=== PATIENT | male | born 1960 | race Caucasian/White ===

== ENCOUNTER 2018-10-23 19:27 | Inpatient (IN) | payer OTHER ==
[2018-10-23] MEDS: CEFTRIAXONE 2 GM/50 ML (PMX) 50 ML IVPB (22:56)
[2018-10-23] MEDS ORDERED: NACL 0.9% 3 ML SYG IV (23:00)
[2018-10-23] MEDS ORDERED: BISACODYL (EC) 5 MG TAB PO (23:00)
[2018-10-23] MEDS ORDERED: ONDANSETRON 4 MG TAB PO (23:00)
[2018-10-23] MEDS ORDERED: ACETAMINOPHEN 325 MG TAB PO (23:00)
[2018-10-23] MEDS ORDERED: DOCUSATE SODIUM 100 MG CAP PO (23:00)
[2018-10-23] MEDS: CEFTRIAXONE 2 GM INJ IM (23:09)
[2018-10-24] MEDS: HYDROmorphONE 1 MG/ML SYG IM ×6 (04:00→19:00)
[2018-10-24] MEDS: VANCOMYCIN 1 GM (PMX) 250 ML IVPB (04:49)
[2018-10-24] MEDS: PIPER-TAZO 3.375 GM IV (PMX) 100 ML IVPB (04:49)
[2018-10-24] MEDS: HEPARIN 5,000 UNIT/1 ML VIAL SC (04:50)
[2018-10-24] MEDS: HYDROmorphONE 2 MG/ML SYG IM (04:54)
[2018-10-24 06:15] LABS: ADD MAN DIFF? NO
[2018-10-24 06:19] LABS: BASOPHIL # 0.1 10^3/ul (0.0-0.1); BASOPHILS % 0.8 % (0.0-2.0); EOSINOPHILS # 0.1 10^3/ul (0.0-0.5); EOSINOPHILS % 1.6 % (0.0-7.0); HEMATOCRIT 37.4 % (42.0-52.0); HEMOGLOBIN 11.2 g/dl (14.0-18.0); LYMPHOCYTES # 1.4 10^3/ul (0.8-2.9); MEAN CORPUSCULAR HEMOGLOBIN 24.6 pg (29.0-33.0); MEAN CORPUSCULAR HGB CONC 29.9 g/dl (32.0-37.0); MEAN PLATELET VOLUME 9.5 fl (7.4-10.4); MONOCYTE # 0.5 10^3/ul (0.3-0.9); MONOCYTES % 7.4 % (0.0-11.0); NEUTROPHIL # 4.1 10^3/ul (1.6-7.5); NEUTROPHILS % 66.7 % (39.0-77.0); PLATELET COUNT 309 10^3/UL (140-415); RED BLOOD COUNT 4.56 10^6/ul (4.70-6.10); RED CELL DISTRIBUTION WIDTH 15.2 % (11.5-14.5)
[2018-10-24 06:19] LABS: WHITE BLOOD COUNT 6.2 10^3/ul (4.8-10.8)
[2018-10-24] MEDS ORDERED: PENDING SANTYL ORDER FOR WOUND CARE XX (06:30)
[2018-10-24 06:42] LABS: INR 1.03; PROTIME 13.6 Sec (11.9-14.9); PT RATIO 1.1
[2018-10-24 06:43] LABS: PARTIAL THROMBOPLASTIN TIME 23.5 Sec (23.0-35.0)
[2018-10-24 06:44] LABS: ANION GAP 10 (5-13)
[2018-10-24 06:45] LABS: ALANINE AMINOTRANSFERASE 19 IU/L (13-69); ALBUMIN 3.6 g/dl (3.3-4.9); ALBUMIN/GLOBULIN RATIO 0.75; ALKALINE PHOSPHATASE 147 IU/L (42-121); ASPARTATE AMINO TRANSFERASE 29 IU/L (15-46); BILIRUBIN,INDIRECT 0.4 mg/dl (0-1.1); BILIRUBIN,TOTAL 0.4 mg/dl (0.2-1.3); BLOOD UREA NITROGEN 16 mg/dl (7-20); CALCIUM 8.7 mg/dl (8.4-10.2); CARBON DIOXIDE 28 mmol/L (21-31); CHLORIDE 102 mmol/L (97-110); CREATININE 1.36 mg/dl (0.61-1.24); Estimated GFR 54 mL/min (>60); GLUCOSE 153 mg/dl (70-220); LIPASE 46 U/L (23-300); POTASSIUM 3.9 mmol/L (3.5-5.1); SODIUM 140 mmol/L (135-144); TOTAL PROTEIN 8.4 g/dl (6.1-8.1)
[2018-10-24 07:10] LABS: C-REACTIVE PROTEIN 4.9 mg/dl (0.0-0.9)
[2018-10-24 07:23] LABS: HEMOGLOBIN A1C 6.1 % (0-5.9)
[2018-10-24 07:44] LABS: C-REACTIVE PROTEIN 4.9 mg/dl (0.0-0.9)
[2018-10-24 07:44] LABS: MAGNESIUM 2.1 mg/dl (1.7-2.5)
[2018-10-24 10:06] LABS: ERYTHROCYTE SEDIMENTATION RATE 32 mm/Hr (0-20)
[2018-10-24 15:21] LABS: HEPATITIS B SURFACE ANTIGEN NEGATIVE (NEGATIVE)
[2018-10-24 15:38] LABS: HEPATITIS C VIRAL ANTIBODY NEGATIVE (NEGATIVE)
[2018-10-24] MEDS: ITRACONAZOLE 100 MG CAP PO (16:38)
[2018-10-24] MEDS ORDERED: HYDROmorphONE 2 MG TAB PO (20:30)
[2018-10-24] MEDS: PENTOXIFYLLINE (SR) 400 MG TAB PO (20:54)
[2018-10-24] MEDS: CEFTRIAXONE 2 GM INJ IM (22:06)
[2018-10-25] MEDS: SODIUM HYPOCHLORITE (1/40) 1 APPLIC BTL IRR ×3 (01:05→21:52)
[2018-10-25] MEDS: ITRACONAZOLE 100 MG CAP PO ×3 (01:06→21:51)
[2018-10-25] MEDS: HYDROmorphONE 2 MG TAB PO ×5 (01:07→23:08)
[2018-10-25 06:30] LABS: ADD MAN DIFF? NO
[2018-10-25 06:41] LABS: BASOPHILS % 0.4 % (0.0-2.0); EOSINOPHILS # 0.1 10^3/ul (0.0-0.5); EOSINOPHILS % 1.6 % (0.0-7.0); HEMATOCRIT 37.1 % (42.0-52.0); HEMOGLOBIN 11.1 g/dl (14.0-18.0); LYMPHOCYTES # 1.3 10^3/ul (0.8-2.9); LYMPHOCYTES % 18.6 % (15.0-51.0); MEAN CORPUSCULAR HEMOGLOBIN 24.4 pg (29.0-33.0); MEAN CORPUSCULAR HGB CONC 29.9 g/dl (32.0-37.0); MEAN CORPUSCULAR VOLUME 81.7 fl (82.0-101.0); MEAN PLATELET VOLUME 9.9 fl (7.4-10.4); MONOCYTE # 0.4 10^3/ul (0.3-0.9); MONOCYTES % 6.2 % (0.0-11.0); NEUTROPHIL # 4.9 10^3/ul (1.6-7.5); NEUTROPHILS % 72.8 % (39.0-77.0); PLATELET COUNT 276 10^3/UL (140-415); RED BLOOD COUNT 4.54 10^6/ul (4.70-6.10); RED CELL DISTRIBUTION WIDTH 15.2 % (11.5-14.5)
[2018-10-25 06:41] LABS: WHITE BLOOD COUNT 6.7 10^3/ul (4.8-10.8)
[2018-10-25 07:38] LABS: ALANINE AMINOTRANSFERASE 17 IU/L (13-69); ALBUMIN 3.3 g/dl (3.3-4.9); ALBUMIN/GLOBULIN RATIO 0.71; ALKALINE PHOSPHATASE 133 IU/L (42-121); ANION GAP 9 (5-13); ASPARTATE AMINO TRANSFERASE 26 IU/L (15-46); BILIRUBIN,INDIRECT 0.2 mg/dl (0-1.1); BILIRUBIN,TOTAL 0.2 mg/dl (0.2-1.3); BLOOD UREA NITROGEN 20 mg/dl (7-20); CALCIUM 8.8 mg/dl (8.4-10.2); CARBON DIOXIDE 28 mmol/L (21-31); CHLORIDE 103 mmol/L (97-110); Estimated GFR > 60 mL/min (>60); GLUCOSE 122 mg/dl (70-220); POTASSIUM 4.4 mmol/L (3.5-5.1); SODIUM 140 mmol/L (135-144); TOTAL PROTEIN 7.9 g/dl (6.1-8.1)
[2018-10-25] MEDS: PENTOXIFYLLINE (SR) 400 MG TAB PO ×3 (09:37→21:52)
[2018-10-25] MEDS ORDERED: VANCOMYCIN IV PER PHARMACY XX (15:30)
[2018-10-25] MEDS: VANCOMYCIN HCL 2 GM in SOD CHLORIDE 0.9% 500 ML IVPB (18:22)
[2018-10-25] MEDS: PIPER-TAZO 3.375 GM IV (PMX) 100 ML IVPB (18:22)
[2018-10-25] MEDS: morphine 2 MG INJ IV (21:50)
[2018-10-25] MEDS: LOSARTAN 25 MG TAB PO (21:51)
[2018-10-25] MEDS: ATORVASTATIN 10 MG TAB PO (21:51)
[2018-10-25] MEDS: HEPARIN 5,000 UNIT/1 ML VIAL SC (21:53)
[2018-10-26] MEDS: PIPER-TAZO 3.375 GM IV (PMX) 100 ML IVPB ×4 (00:39→17:33)
[2018-10-26 05:55] LABS: ADD MAN DIFF? NO
[2018-10-26] MEDS: VANCOMYCIN HCL 1.75 GM in SOD CHLORIDE 0.9% 500 ML IVPB ×2 (05:55→18:42)
[2018-10-26 05:59] LABS: BASOPHIL # 0.1 10^3/ul (0.0-0.1); BASOPHILS % 0.7 % (0.0-2.0); EOSINOPHILS # 0.1 10^3/ul (0.0-0.5); EOSINOPHILS % 1.8 % (0.0-7.0); HEMATOCRIT 34.1 % (42.0-52.0); HEMOGLOBIN 10.2 g/dl (14.0-18.0); LYMPHOCYTES % 14.9 % (15.0-51.0); MEAN CORPUSCULAR HEMOGLOBIN 24.6 pg (29.0-33.0); MEAN CORPUSCULAR HGB CONC 29.9 g/dl (32.0-37.0); MEAN CORPUSCULAR VOLUME 82.4 fl (82.0-101.0); MEAN PLATELET VOLUME 9.9 fl (7.4-10.4); MONOCYTE # 0.4 10^3/ul (0.3-0.9); MONOCYTES % 5.2 % (0.0-11.0); NEUTROPHIL # 5.2 10^3/ul (1.6-7.5); NEUTROPHILS % 77.1 % (39.0-77.0); PLATELET COUNT 260 10^3/UL (140-415); RED BLOOD COUNT 4.14 10^6/ul (4.70-6.10); RED CELL DISTRIBUTION WIDTH 15.5 % (11.5-14.5)
[2018-10-26 05:59] LABS: WHITE BLOOD COUNT 6.7 10^3/ul (4.8-10.8)
[2018-10-26 06:15] LABS: ALANINE AMINOTRANSFERASE 28 IU/L (13-69); ALBUMIN/GLOBULIN RATIO 0.71; ALKALINE PHOSPHATASE 132 IU/L (42-121); ANION GAP 8 (5-13); ASPARTATE AMINO TRANSFERASE 21 IU/L (15-46); BILIRUBIN,INDIRECT 0.1 mg/dl (0-1.1); BILIRUBIN,TOTAL 0.1 mg/dl (0.2-1.3); BLOOD UREA NITROGEN 20 mg/dl (7-20); CALCIUM 8.3 mg/dl (8.4-10.2); CARBON DIOXIDE 29 mmol/L (21-31); CHLORIDE 104 mmol/L (97-110); CREATININE 1.37 mg/dl (0.61-1.24); Estimated GFR 53 mL/min (>60); GLUCOSE 134 mg/dl (70-220); POTASSIUM 3.9 mmol/L (3.5-5.1); SODIUM 141 mmol/L (135-144); TOTAL PROTEIN 7.2 g/dl (6.1-8.1)
[2018-10-26] MEDS: SODIUM HYPOCHLORITE (1/40) 1 APPLIC BTL IRR ×3 (09:00→21:06)
[2018-10-26] MEDS: LOSARTAN 25 MG TAB PO ×2 (09:00→21:00)
[2018-10-26] MEDS: ARIPIPRAZOLE 10 MG TAB PO (09:12)
[2018-10-26] MEDS: ITRACONAZOLE 100 MG CAP PO ×2 (09:14→21:01)
[2018-10-26] MEDS: PENTOXIFYLLINE (SR) 400 MG TAB PO ×3 (09:17→21:01)
[2018-10-26] MEDS: HEPARIN 5,000 UNIT/1 ML VIAL SC ×2 (09:17→21:02)
[2018-10-26] MEDS: HYDROmorphONE 2 MG TAB PO ×4 (09:19→22:56)
[2018-10-26 15:32] LABS: IRON 27 ug/dl (35-150)
[2018-10-26 15:41] LABS: % IRON SATURATION 10 % SAT (22-52); TOTAL IRON BINDING CAPACITY 270 ug/dl (241-421)
[2018-10-26] MEDS: ATORVASTATIN 10 MG TAB PO (21:01)
[2018-10-27] MEDS: PIPER-TAZO 3.375 GM IV (PMX) 100 ML IVPB ×3 (00:03→12:18)
[2018-10-27] MEDS: morphine 2 MG INJ IV ×3 (00:08→22:53)
[2018-10-27] MEDS: HYDROmorphONE 2 MG TAB PO ×4 (04:36→21:05)
[2018-10-27 05:36] LABS: ADD MAN DIFF? NO
[2018-10-27 05:41] LABS: BASOPHILS % 0.6 % (0.0-2.0); EOSINOPHILS # 0.2 10^3/ul (0.0-0.5); EOSINOPHILS % 2.2 % (0.0-7.0); HEMATOCRIT 36.4 % (42.0-52.0); HEMOGLOBIN 11.1 g/dl (14.0-18.0); LYMPHOCYTES # 1.3 10^3/ul (0.8-2.9); LYMPHOCYTES % 18.5 % (15.0-51.0); MEAN CORPUSCULAR HEMOGLOBIN 24.6 pg (29.0-33.0); MEAN CORPUSCULAR HGB CONC 30.5 g/dl (32.0-37.0); MEAN CORPUSCULAR VOLUME 80.5 fl (82.0-101.0); MEAN PLATELET VOLUME 9.9 fl (7.4-10.4); MONOCYTE # 0.3 10^3/ul (0.3-0.9); MONOCYTES % 4.8 % (0.0-11.0); NEUTROPHIL # 5.1 10^3/ul (1.6-7.5); NEUTROPHILS % 73.5 % (39.0-77.0); PLATELET COUNT 285 10^3/UL (140-415); RED BLOOD COUNT 4.52 10^6/ul (4.70-6.10); RED CELL DISTRIBUTION WIDTH 15.4 % (11.5-14.5)
[2018-10-27 05:41] LABS: WHITE BLOOD COUNT 6.9 10^3/ul (4.8-10.8)
[2018-10-27 05:49] LABS: ALANINE AMINOTRANSFERASE 19 IU/L (13-69); ALBUMIN 3.5 g/dl (3.3-4.9); ALBUMIN/GLOBULIN RATIO 0.74; ALKALINE PHOSPHATASE 145 IU/L (42-121); ANION GAP 11 (5-13); ASPARTATE AMINO TRANSFERASE 22 IU/L (15-46); BILIRUBIN,INDIRECT 0.4 mg/dl (0-1.1); BILIRUBIN,TOTAL 0.4 mg/dl (0.2-1.3); BLOOD UREA NITROGEN 17 mg/dl (7-20); CALCIUM 8.8 mg/dl (8.4-10.2); CARBON DIOXIDE 27 mmol/L (21-31); CHLORIDE 101 mmol/L (97-110); CREATININE 1.29 mg/dl (0.61-1.24); Estimated GFR 57 mL/min (>60); GLUCOSE 114 mg/dl (70-220); POTASSIUM 4.2 mmol/L (3.5-5.1); SODIUM 139 mmol/L (135-144); TOTAL PROTEIN 8.2 g/dl (6.1-8.1)
[2018-10-27 05:51] LABS: ANION GAP 10 (5-13); BLOOD UREA NITROGEN 18 mg/dl (7-20); CALCIUM 8.8 mg/dl (8.4-10.2); CARBON DIOXIDE 26 mmol/L (21-31); CHLORIDE 102 mmol/L (97-110); CREATININE 1.27 mg/dl (0.61-1.24); Estimated GFR 58 mL/min (>60); GLUCOSE 114 mg/dl (70-220); MAGNESIUM 1.9 mg/dl (1.7-2.5); PHOSPHORUS 3.8 mg/dl (2.5-4.9); POTASSIUM 4.2 mmol/L (3.5-5.1); SODIUM 138 mmol/L (135-144)
[2018-10-27] MEDS: VANCOMYCIN HCL 1.75 GM in SOD CHLORIDE 0.9% 500 ML IVPB ×2 (06:00→18:18)
[2018-10-27 06:07] LABS: VANCOMYCIN,TROUGH 15.4 ug/ml (10.0-20.0)
[2018-10-27] MEDS ORDERED: ONDANSETRON 4 MG INJ (07:00)
[2018-10-27] MEDS ORDERED: PROPOFOL 20 ML (07:26)
[2018-10-27] MEDS ORDERED: MIDAZOLAM 1 MG/ML 2 ML INJ (07:26)
[2018-10-27] MEDS ORDERED: FENTAnyl 50 MCG/ML VIAL (07:26)
[2018-10-27] MEDS ORDERED: ROPIVACAINE 0.2% 20 ML VIAL (07:29)
[2018-10-27] MEDS ORDERED: METOCLOPRAMIDE 10 MG INJ (07:34)
[2018-10-27] MEDS: BACITRACIN 50000 UNITS INJ IRR (08:43)
[2018-10-27] MEDS: POLYMYXIN/BACITRACIN 1L IRRIG IRR ×2 (08:43)
[2018-10-27] MEDS: LOSARTAN 25 MG TAB PO ×2 (09:00→21:30)
[2018-10-27] MEDS: PENTOXIFYLLINE (SR) 400 MG TAB PO ×3 (09:00→21:29)
[2018-10-27] MEDS: ARIPIPRAZOLE 10 MG TAB PO (09:00)
[2018-10-27] MEDS: SODIUM HYPOCHLORITE (1/40) 1 APPLIC BTL IRR ×2 (09:00→21:00)
[2018-10-27] MEDS: ITRACONAZOLE 100 MG CAP PO ×2 (09:00→21:29)
[2018-10-27] MEDS: HEPARIN 5,000 UNIT/1 ML VIAL SC ×2 (09:00→21:28)
[2018-10-27] MEDS ORDERED: LIDOCAINE 2% (SDV) 5 ML INJ (09:11)
[2018-10-27] MEDS ORDERED: MIDAZOLAM 1 MG/ML 2 ML INJ IV (10:30)
[2018-10-27] MEDS ORDERED: LABETALOL HCL 20MG INJ IV (10:30)
[2018-10-27] MEDS ORDERED: IPRATROPIUM (NEB) 0.5 MG/2.5 ML AMP HHN (10:30)
[2018-10-27] MEDS ORDERED: ONDANSETRON 4 MG INJ IV (10:30)
[2018-10-27] MEDS ORDERED: hydrALAzine 20 MG INJ IV (10:30)
[2018-10-27] MEDS ORDERED: MEPERIDINE 25 MG INJ IV (10:30)
[2018-10-27] MEDS ORDERED: FENTAnyl 50 MCG/ML VIAL IV ×2 (10:30)
[2018-10-27] MEDS ORDERED: LEVALBUTEROL (NEB) 1.25 MG/0.5 ML AMP HHN (10:30)
[2018-10-27] MEDS ORDERED: HYDROmorphONE 1 MG/5 ML IV SYRINGE IV ×2 (10:30)
[2018-10-27] MEDS ORDERED: DIPHENHYDRAMINE 50 MG INJ IV (10:30)
[2018-10-27] MEDS ORDERED: LORAZEPAM 2 MG INJ IV (10:30)
[2018-10-27] MEDS: CEFEPIME 1GM/50 ML (PMX) 50 ML IVPB (21:27)
[2018-10-27] MEDS: ATORVASTATIN 10 MG TAB PO (21:29)
[2018-10-28] MEDS: HYDROmorphONE 2 MG TAB PO ×6 (01:33→23:57)
[2018-10-28] MEDS: VANCOMYCIN HCL 1.75 GM in SOD CHLORIDE 0.9% 500 ML IVPB (05:49)
[2018-10-28 06:07] LABS: ADD MAN DIFF? NO
[2018-10-28 06:08] LABS: WHITE BLOOD COUNT 5.1 10^3/ul (4.8-10.8)
[2018-10-28 06:08] LABS: BASOPHILS % 0.6 % (0.0-2.0); EOSINOPHILS # 0.1 10^3/ul (0.0-0.5); EOSINOPHILS % 1.8 % (0.0-7.0); HEMATOCRIT 32.4 % (42.0-52.0); HEMOGLOBIN 9.7 g/dl (14.0-18.0); LYMPHOCYTES # 1.1 10^3/ul (0.8-2.9); LYMPHOCYTES % 22.4 % (15.0-51.0); MEAN CORPUSCULAR HEMOGLOBIN 24.6 pg (29.0-33.0); MEAN CORPUSCULAR HGB CONC 29.9 g/dl (32.0-37.0); MEAN PLATELET VOLUME 9.9 fl (7.4-10.4); MONOCYTE # 0.3 10^3/ul (0.3-0.9); MONOCYTES % 6.7 % (0.0-11.0); NEUTROPHIL # 3.5 10^3/ul (1.6-7.5); NEUTROPHILS % 68.3 % (39.0-77.0); PLATELET COUNT 219 10^3/UL (140-415); RED BLOOD COUNT 3.95 10^6/ul (4.70-6.10); RED CELL DISTRIBUTION WIDTH 15.3 % (11.5-14.5)
[2018-10-28 06:45] LABS: ANION GAP 5 (5-13); BLOOD UREA NITROGEN 13 mg/dl (7-20); CALCIUM 8.4 mg/dl (8.4-10.2); CARBON DIOXIDE 28 mmol/L (21-31); CHLORIDE 103 mmol/L (97-110); CREATININE 1.08 mg/dl (0.61-1.24); Estimated GFR > 60 mL/min (>60); GLUCOSE 123 mg/dl (70-220); MAGNESIUM 1.9 mg/dl (1.7-2.5); PHOSPHORUS 4.2 mg/dl (2.5-4.9); POTASSIUM 3.7 mmol/L (3.5-5.1); SODIUM 136 mmol/L (135-144)
[2018-10-28] MEDS: PENTOXIFYLLINE (SR) 400 MG TAB PO ×3 (08:37→21:48)
[2018-10-28] MEDS: ARIPIPRAZOLE 10 MG TAB PO (08:37)
[2018-10-28] MEDS: ITRACONAZOLE 100 MG CAP PO ×2 (08:38→21:47)
[2018-10-28] MEDS: morphine 2 MG INJ IV (08:39)
[2018-10-28] MEDS: HEPARIN 5,000 UNIT/1 ML VIAL SC ×2 (08:40→21:51)
[2018-10-28] MEDS: CEFEPIME 1GM/50 ML (PMX) 50 ML IVPB (08:41)
[2018-10-28] MEDS: SODIUM HYPOCHLORITE (1/40) 1 APPLIC BTL IRR ×2 (08:41→21:00)
[2018-10-28] MEDS: LOSARTAN 25 MG TAB PO ×2 (08:49→21:00)
[2018-10-28] MEDS: LIDOCAINE 1% (MPF) 5 ML VIAL SC (09:41)
[2018-10-28 10:59] LABS: ADD UMIC NO; UR ASCORBIC ACID NEGATIVE (NEGATIVE); UR BILIRUBIN (Dip) NEGATIVE (NEGATIVE); UR BLOOD (Dip) NEGATIVE (NEGATIVE); UR CLARITY CLEAR (CLEAR); UR COLOR YELLOW (YELLOW); UR GLUCOSE (Dip) NEGATIVE (NEGATIVE); UR KETONES (Dip) NEGATIVE (NEGATIVE); UR LEUKOCYTE ESTERASE (Dip) NEGATIVE Leu/ul (NEGATIVE); UR NITRITE (Dip) NEGATIVE (NEGATIVE); UR SPECIFIC GRAVITY (Dip) 1.021 (1.003-1.030); UR TOTAL PROTEIN (Dip) NEGATIVE (NEGATIVE); UR UROBILINOGEN (Dip) NEGATIVE (NEGATIVE)
[2018-10-28 11:27] LABS: CREATININE,URINE RANDOM 142.52 mg/dl (20-370)
[2018-10-28 11:27] LABS: SODIUM,URINE RANDOM 144 mmol/L (30-90)
[2018-10-28] MEDS: CIPROFLOXACIN 500 MG TAB PO (17:56)
[2018-10-28] MEDS: ATORVASTATIN 10 MG TAB PO (21:46)
[2018-10-29] MEDS: CLINDAMYCIN 600 MG/D5W (PMX) 50 ML IVPB ×4 (00:06→22:51)
[2018-10-29] MEDS: HYDROmorphONE 2 MG TAB PO ×5 (05:27→22:52)
[2018-10-29] MEDS: CIPROFLOXACIN 500 MG TAB PO ×2 (05:28→18:47)
[2018-10-29 06:28] LABS: ADD MAN DIFF? NO
[2018-10-29 06:34] LABS: WHITE BLOOD COUNT 4.9 10^3/ul (4.8-10.8)
[2018-10-29 06:34] LABS: BASOPHILS % 0.8 % (0.0-2.0); EOSINOPHILS # 0.1 10^3/ul (0.0-0.5); EOSINOPHILS % 2.9 % (0.0-7.0); HEMATOCRIT 34.1 % (42.0-52.0); HEMOGLOBIN 10.3 g/dl (14.0-18.0); LYMPHOCYTES % 19.6 % (15.0-51.0); MEAN CORPUSCULAR HEMOGLOBIN 24.6 pg (29.0-33.0); MEAN CORPUSCULAR HGB CONC 30.2 g/dl (32.0-37.0); MEAN CORPUSCULAR VOLUME 81.4 fl (82.0-101.0); MEAN PLATELET VOLUME 9.6 fl (7.4-10.4); MONOCYTE # 0.4 10^3/ul (0.3-0.9); MONOCYTES % 7.1 % (0.0-11.0); NEUTROPHIL # 3.4 10^3/ul (1.6-7.5); NEUTROPHILS % 69.4 % (39.0-77.0); PLATELET COUNT 223 10^3/UL (140-415); RED BLOOD COUNT 4.19 10^6/ul (4.70-6.10); RED CELL DISTRIBUTION WIDTH 15.6 % (11.5-14.5)
[2018-10-29 07:04] LABS: ANION GAP 6 (5-13); BLOOD UREA NITROGEN 10 mg/dl (7-20); CALCIUM 8.4 mg/dl (8.4-10.2); CARBON DIOXIDE 29 mmol/L (21-31); CHLORIDE 103 mmol/L (97-110); CREATININE 0.99 mg/dl (0.61-1.24); Estimated GFR > 60 mL/min (>60); GLUCOSE 110 mg/dl (70-220); MAGNESIUM 1.8 mg/dl (1.7-2.5); POTASSIUM 3.8 mmol/L (3.5-5.1); SODIUM 138 mmol/L (135-144)
[2018-10-29] MEDS: LOSARTAN 25 MG TAB PO ×2 (09:00→20:52)
[2018-10-29] MEDS: SODIUM HYPOCHLORITE (1/40) 1 APPLIC BTL IRR ×2 (09:00→21:00)
[2018-10-29] MEDS: PENTOXIFYLLINE (SR) 400 MG TAB PO ×3 (09:16→20:52)
[2018-10-29] MEDS: ARIPIPRAZOLE 10 MG TAB PO (09:17)
[2018-10-29] MEDS: ITRACONAZOLE 100 MG CAP PO ×2 (09:17→20:50)
[2018-10-29] MEDS: ASPIRIN 81 MG TAB PO (09:18)
[2018-10-29] MEDS: HEPARIN 5,000 UNIT/1 ML VIAL SC ×2 (09:19→20:55)
[2018-10-29] MEDS: HYDROCODONE/APAP (5/325) TAB PO ×2 (12:42→20:51)
[2018-10-29 17:27] LABS: CREATININE, RANDOM URINE 139 mg/dL (20-320); MICROALBUMIN 0.5 mg/dL; MICROALBUMIN/CREATININE RATIO 4 (<30)
[2018-10-29] MEDS: ATORVASTATIN 10 MG TAB PO (20:52)
[2018-10-30] MEDS: HYDROmorphONE 2 MG TAB PO ×5 (03:15→20:13)
[2018-10-30] MEDS: HYDROCODONE/APAP (5/325) TAB PO ×2 (05:37→17:48)
[2018-10-30] MEDS: CLINDAMYCIN 600 MG/D5W (PMX) 50 ML IVPB ×3 (05:37→22:28)
[2018-10-30] MEDS: CIPROFLOXACIN 500 MG TAB PO ×2 (05:37→17:48)
[2018-10-30] MEDS: SODIUM HYPOCHLORITE (1/40) 1 APPLIC BTL IRR ×2 (08:22→21:00)
[2018-10-30] MEDS: ARIPIPRAZOLE 10 MG TAB PO (08:31)
[2018-10-30] MEDS: ASPIRIN 81 MG TAB PO (08:31)
[2018-10-30] MEDS: LOSARTAN 25 MG TAB PO ×3 (08:32→20:14)
[2018-10-30] MEDS: PENTOXIFYLLINE (SR) 400 MG TAB PO ×3 (08:32→20:14)
[2018-10-30] MEDS: HEPARIN 5,000 UNIT/1 ML VIAL SC ×2 (08:32→22:23)
[2018-10-30] MEDS: ITRACONAZOLE 100 MG CAP PO (08:32)
[2018-10-30] MEDS: ATORVASTATIN 10 MG TAB PO (20:14)
[2018-10-31] MEDS: ITRACONAZOLE 100 MG CAP PO ×2 (00:10→08:17)
[2018-10-31] MEDS: HYDROmorphONE 2 MG TAB PO ×3 (00:13→08:49)
[2018-10-31] MEDS: CLINDAMYCIN 600 MG/D5W (PMX) 50 ML IVPB (05:21)
[2018-10-31] MEDS: CIPROFLOXACIN 500 MG TAB PO (05:21)
[2018-10-31] MEDS: SODIUM HYPOCHLORITE (1/40) 1 APPLIC BTL IRR (08:17)
[2018-10-31] MEDS: ARIPIPRAZOLE 10 MG TAB PO (08:17)
[2018-10-31] MEDS: ASPIRIN 81 MG TAB PO (08:17)
[2018-10-31] MEDS: PENTOXIFYLLINE (SR) 400 MG TAB PO ×2 (08:17→12:59)
[2018-10-31] MEDS: LOSARTAN 25 MG TAB PO (08:17)
[2018-10-31] MEDS: HEPARIN 5,000 UNIT/1 ML VIAL SC (08:19)
== END 2018-10-31 13:15 | disposition home health service (06) | DRG 574 ==
LOC: PP2 22:54 → E/R 19:27
PROVIDERS: Family Medicine
PROC: 0HRLXK3 Replacement of Left Lower Leg Skin with Nonautologous Tissue Substitute, Full Thickness, External Approach (ICD-10-PCS; principal; 2018-10-27 07:30)
PROC: 0JBP0ZZ Excision of Left Lower Leg Subcutaneous Tissue and Fascia, Open Approach (ICD-10-PCS; 2018-10-27 07:30)
PROC: 0JBN0ZZ Excision of Right Lower Leg Subcutaneous Tissue and Fascia, Open Approach (ICD-10-PCS; 2018-10-27 07:30)
PROC: 0HRKXK3 Replacement of Right Lower Leg Skin with Nonautologous Tissue Substitute, Full Thickness, External Approach (ICD-10-PCS; 2018-10-27 07:30)
PROC: 05HM33Z Insertion of Infusion Device into Right Internal Jugular Vein, Percutaneous Approach (ICD-10-PCS; 2018-10-27 08:08)
DX: L97.811 Non-pressure chronic ulcer of other part of right lower leg limited to breakdown of skin (principal); N17.9 Acute kidney failure, unspecified; L03.116 Cellulitis of left lower limb; L03.115 Cellulitis of right lower limb; L97.821 Non-pressure chronic ulcer of other part of left lower leg limited to breakdown of skin; I87.2 Venous insufficiency (chronic) (peripheral); E66.9 Obesity, unspecified; B35.1 Tinea unguium; B35.3 Tinea pedis; E78.5 Hyperlipidemia, unspecified; F32.9 Major depressive disorder, single episode, unspecified; I10 Essential (primary) hypertension; D50.9 Iron deficiency anemia, unspecified; G89.4 Chronic pain syndrome; R73.03 Prediabetes; Y83.2 Surgical operation with anastomosis, bypass or graft as the cause of abnormal reaction of the patient, or of later complication, without mention of misadventure at the time of the procedure; I87.8 Other specified disorders of veins; I89.0 Lymphedema, not elsewhere classified; I87.001 Postthrombotic syndrome without complications of right lower extremity; I12.9 Hypertensive chronic kidney disease with stage 1 through stage 4 chronic kidney disease, or unspecified chronic kidney disease; N18.9 Chronic kidney disease, unspecified; Z86.718 Personal history of other venous thrombosis and embolism; Z68.38 Body mass index [BMI] 38.0-38.9, adult
CPT/HCPCS: 71045; 73590; 73719; 74018; 76775; 76937; 80048; 80053; 80202; 81003; 82043; 83036; 83540; 83690; 83735; 84100; 84155; 84300; 84443; 85025; 85610; 85651; 85730; 86140; 86803; 87040; 87070; 87075; 87081; 87102; 87340; 88304; 93005; 93922; 93970; 99285-25

== ENCOUNTER 2018-11-02 16:24 | Emergency (ER) | payer SELFPAY, OTHER | END 2018-11-02 17:30 | disposition left against medical advice (07) | LOC: FTE 17:30 | DX: Z53.21 Procedure and treatment not carried out due to patient leaving prior to being seen by health care provider (principal) ==

== ENCOUNTER 2018-12-23 16:55 | Emergency (ER) | payer SELFPAY, OTHER | END 2018-12-23 22:38 | disposition left against medical advice (07) | LOC: E/R 16:55 | DX: Z53.21 Procedure and treatment not carried out due to patient leaving prior to being seen by health care provider (principal) ==

== ENCOUNTER 2018-12-25 16:29 | Inpatient (IN) | payer OTHER ==
[2018-12-25] MEDS: SODIUM CHLORIDE 0.9% 1L BAG IV* (21:07)
[2018-12-25] MEDS: PIPER-TAZO 3.375 GM IV (PMX) 100 ML IVPB (21:07)
[2018-12-25 21:13] LABS: ADD MAN DIFF? NO
[2018-12-25] MEDS ORDERED: DIPHENHYDRAMINE 50 MG INJ (21:16)
[2018-12-25] MEDS ORDERED: METHYLPREDNISOLONE 125 MG INJ (21:18)
[2018-12-25] MEDS ORDERED: EPINEPHrine 1 MG INJ (21:18)
[2018-12-25] MEDS: DIPHENHYDRAMINE 50 MG INJ IV (21:19)
[2018-12-25] MEDS: METHYLPREDNISOLONE 125 MG INJ IV (21:20)
[2018-12-25] MEDS: EPINEPHrine 1 MG INJ IM (21:20)
[2018-12-25 21:23] LABS: BASOPHIL # 0.1 10^3/ul (0.0-0.1); BASOPHILS % 0.8 % (0.0-2.0); EOSINOPHILS # 0.2 10^3/ul (0.0-0.5); EOSINOPHILS % 2.3 % (0.0-7.0); HEMATOCRIT 36.8 % (42.0-52.0); HEMOGLOBIN 11.2 g/dl (14.0-18.0); LYMPHOCYTES # 1.3 10^3/ul (0.8-2.9); LYMPHOCYTES % 17.5 % (15.0-51.0); MEAN CORPUSCULAR HEMOGLOBIN 24.8 pg (29.0-33.0); MEAN CORPUSCULAR HGB CONC 30.4 g/dl (32.0-37.0); MEAN CORPUSCULAR VOLUME 81.4 fl (82.0-101.0); MEAN PLATELET VOLUME 9.3 fl (7.4-10.4); MONOCYTE # 0.5 10^3/ul (0.3-0.9); MONOCYTES % 6.9 % (0.0-11.0); NEUTROPHIL # 5.2 10^3/ul (1.6-7.5); NEUTROPHILS % 71.7 % (39.0-77.0); PLATELET COUNT 251 10^3/UL (140-415); RED BLOOD COUNT 4.52 10^6/ul (4.70-6.10); RED CELL DISTRIBUTION WIDTH 16.4 % (11.5-14.5)
[2018-12-25 21:23] LABS: WHITE BLOOD COUNT 7.3 10^3/ul (4.8-10.8)
[2018-12-25] MEDS: FENTAnyl 50 MCG/ML VIAL IV (21:33)
[2018-12-25] MEDS: VANCOMYCIN 1 GM (PMX) 250 ML IVPB (21:33)
[2018-12-25] MEDS: ALBUTEROL 0.083% (NEB) 2.5 MG/3 ML AMP INH (21:34)
[2018-12-25] MEDS: IPRATROPIUM (NEB) 0.5 MG/2.5 ML AMP INH (21:34)
[2018-12-25 21:42] LABS: INR 0.98; PARTIAL THROMBOPLASTIN TIME 31.7 Sec (23.0-35.0); PROTIME 13.1 Sec (11.9-14.9)
[2018-12-25 21:46] LABS: LACTIC ACID 1.8 mmol/L (0.5-2.0)
[2018-12-25 21:48] LABS: ALANINE AMINOTRANSFERASE 21 IU/L (13-69); ALBUMIN 3.3 g/dl (3.3-4.9); ALBUMIN/GLOBULIN RATIO 0.78; ALKALINE PHOSPHATASE 161 IU/L (42-121); ANION GAP 7 (5-13); ASPARTATE AMINO TRANSFERASE 14 IU/L (15-46); BILIRUBIN,INDIRECT 0.3 mg/dl (0-1.1); BILIRUBIN,TOTAL 0.3 mg/dl (0.2-1.3); BLOOD UREA NITROGEN 20 mg/dl (7-20); C-REACTIVE PROTEIN 5.5 mg/dl (0.0-0.9); CALCIUM 8.6 mg/dl (8.4-10.2); CARBON DIOXIDE 32 mmol/L (21-31); CHLORIDE 102 mmol/L (97-110); CREATININE 1.11 mg/dl (0.61-1.24); Estimated GFR > 60 mL/min (>60); GLUCOSE 102 mg/dl (70-220); POTASSIUM 4.6 mmol/L (3.5-5.1); SODIUM 141 mmol/L (135-144); TOTAL PROTEIN 7.5 g/dl (6.1-8.1)
[2018-12-25 21:56] LABS: TROPONIN-I < 0.012 ng/ml (0.000-0.120)
[2018-12-25] MEDS: FAMOTIDINE 20 MG INJ IV (22:05)
[2018-12-25 22:29] LABS: ERYTHROCYTE SEDIMENTATION RATE 36 mm/Hr (0-20)
[2018-12-26] MEDS ORDERED: NACL 0.9% 3 ML SYG IV (00:30)
[2018-12-26] MEDS ORDERED: ONDANSETRON 4 MG INJ IV (00:30)
[2018-12-26] MEDS ORDERED: ACETAMINOPHEN 325 MG TAB PO (00:30)
[2018-12-26] MEDS ORDERED: ALBUTEROL/IPRATROPIUM (NEB) 3 ML AMP HHN (00:30)
[2018-12-26 01:06] LABS: LACTIC ACID 1.9 mmol/L (0.5-2.0)
[2018-12-26] MEDS ORDERED: PENDING SANTYL ORDER FOR WOUND CARE XX (03:30)
[2018-12-26] MEDS: VANCOMYCIN HCL 1.5 GM in SOD CHLORIDE 0.9% 250 ML IVPB (04:20)
[2018-12-26 08:17] LABS: ADD MAN DIFF? NO
[2018-12-26 08:22] LABS: ABNORMAL IP MESSAGE 1; BASOPHILS % 0.2 % (0.0-2.0); HEMATOCRIT 38.4 % (42.0-52.0); HEMOGLOBIN 11.5 g/dl (14.0-18.0); LYMPHOCYTES # 0.4 10^3/ul (0.8-2.9); LYMPHOCYTES % 3.6 % (15.0-51.0); MEAN CORPUSCULAR HEMOGLOBIN 24.5 pg (29.0-33.0); MEAN CORPUSCULAR HGB CONC 29.9 g/dl (32.0-37.0); MEAN CORPUSCULAR VOLUME 81.9 fl (82.0-101.0); MEAN PLATELET VOLUME 9.9 fl (7.4-10.4); MONOCYTE # 0.1 10^3/ul (0.3-0.9); NEUTROPHIL # 10.8 10^3/ul (1.6-7.5); NEUTROPHILS % 94.6 % (39.0-77.0); PLATELET COUNT 249 10^3/UL (140-415); POSITIVE DIFF @See below; RED BLOOD COUNT 4.69 10^6/ul (4.70-6.10); RED CELL DISTRIBUTION WIDTH 16.2 % (11.5-14.5)
[2018-12-26 08:22] LABS: WHITE BLOOD COUNT 11.4 10^3/ul (4.8-10.8)
[2018-12-26 08:31] LABS: HEMOGLOBIN A1C 5.8 % (0-5.9)
[2018-12-26 08:45] LABS: ALANINE AMINOTRANSFERASE 11 IU/L (13-69); ALBUMIN 3.5 g/dl (3.3-4.9); ALBUMIN/GLOBULIN RATIO 0.81; ALKALINE PHOSPHATASE 151 IU/L (42-121); ANION GAP 9 (5-13); ASPARTATE AMINO TRANSFERASE 19 IU/L (15-46); BILIRUBIN,INDIRECT 0.1 mg/dl (0-1.1); BILIRUBIN,TOTAL 0.1 mg/dl (0.2-1.3); BLOOD UREA NITROGEN 19 mg/dl (7-20); CALCIUM 8.9 mg/dl (8.4-10.2); CARBON DIOXIDE 27 mmol/L (21-31); CHLORIDE 105 mmol/L (97-110); CHOL/HDL RATIO 5.3 RATIO; CHOLESTEROL 138 mg/dl (100-200); CREATININE 0.83 mg/dl (0.61-1.24); Estimated GFR > 60 mL/min (>60); GLUCOSE 228 mg/dl (70-220); HDL CHOLESTEROL 26 mg/dl (30-78); LDL CHOLESTEROL,CALCULATED 99 mg/dl; POTASSIUM 4.5 mmol/L (3.5-5.1); SODIUM 141 mmol/L (135-144); TOTAL PROTEIN 7.8 g/dl (6.1-8.1); TRIGLYCERIDES 66 mg/dl (0-149)
[2018-12-26] MEDS: FERROUS SULFATE (EC) 325 MG TAB PO ×2 (08:45→21:00)
[2018-12-26] MEDS: ASPIRIN 81 MG TAB PO (08:45)
[2018-12-26] MEDS: ARIPIPRAZOLE 10 MG TAB PO (08:46)
[2018-12-26] MEDS: ITRACONAZOLE 100 MG CAP PO ×2 (08:46→21:21)
[2018-12-26] MEDS: ALPRAZOLAM 1 MG TAB PO ×4 (08:46→23:44)
[2018-12-26] MEDS: LOSARTAN 25 MG TAB PO ×2 (08:46→21:21)
[2018-12-26] MEDS: PENTOXIFYLLINE (SR) 400 MG TAB PO ×3 (08:46→21:20)
[2018-12-26] MEDS: HEPARIN 5,000 UNIT/1 ML VIAL SC ×2 (08:49→21:43)
[2018-12-26] MEDS ORDERED: VANCOMYCIN IV PER PHARMACY XX (09:00)
[2018-12-26] MEDS: LEVOFLOXACIN 750MG/D5W (PMX) 150 ML IVPB (15:55)
[2018-12-26] MEDS: VANCOMYCIN HCL 1.75 GM in SOD CHLORIDE 0.9% 500 ML IVPB (18:16)
[2018-12-26] MEDS ORDERED: MEROPENEM 1 GM/50ML(PMX) 50 ML IVPB (21:00)
[2018-12-26] MEDS ORDERED: LOVASTATIN PO (21:00)
[2018-12-26] MEDS: ATORVASTATIN 10 MG TAB PO (21:20)
[2018-12-26] MEDS: morphine 4 MG/ML VIAL IV (23:35)
[2018-12-27] MEDS: VANCOMYCIN HCL 1.75 GM in SOD CHLORIDE 0.9% 500 ML IVPB ×2 (05:29→17:25)
[2018-12-27 06:43] LABS: ADD MAN DIFF? NO
[2018-12-27 06:53] LABS: BASOPHILS % 0.3 % (0.0-2.0); EOSINOPHILS % 0.1 % (0.0-7.0); HEMATOCRIT 36.9 % (42.0-52.0); HEMOGLOBIN 11.2 g/dl (14.0-18.0); LYMPHOCYTES # 0.9 10^3/ul (0.8-2.9); LYMPHOCYTES % 9.1 % (15.0-51.0); MEAN CORPUSCULAR HEMOGLOBIN 25.1 pg (29.0-33.0); MEAN CORPUSCULAR HGB CONC 30.4 g/dl (32.0-37.0); MEAN CORPUSCULAR VOLUME 82.7 fl (82.0-101.0); MEAN PLATELET VOLUME 10.3 fl (7.4-10.4); MONOCYTE # 0.4 10^3/ul (0.3-0.9); MONOCYTES % 3.9 % (0.0-11.0); NEUTROPHIL # 8.3 10^3/ul (1.6-7.5); NEUTROPHILS % 86.1 % (39.0-77.0); POSITIVE DIFF @See below; RED BLOOD COUNT 4.46 10^6/ul (4.70-6.10); RED CELL DISTRIBUTION WIDTH 16.4 % (11.5-14.5)
[2018-12-27 06:53] LABS: WHITE BLOOD COUNT 9.6 10^3/ul (4.8-10.8)
[2018-12-27 07:21] LABS: ANION GAP 11 (5-13); BLOOD UREA NITROGEN 23 mg/dl (7-20); CALCIUM 8.9 mg/dl (8.4-10.2); CARBON DIOXIDE 23 mmol/L (21-31); CHLORIDE 106 mmol/L (97-110); CREATININE 0.86 mg/dl (0.61-1.24); Estimated GFR > 60 mL/min (>60); GLUCOSE 136 mg/dl (70-220); PHOSPHORUS 3.7 mg/dl (2.5-4.9); POTASSIUM 4.9 mmol/L (3.5-5.1); SODIUM 140 mmol/L (135-144)
[2018-12-27 07:23] LABS: PLATELET COUNT 165 10^3/UL (140-415)
[2018-12-27] MEDS: FERROUS SULFATE (EC) 325 MG TAB PO ×2 (09:37→21:48)
[2018-12-27] MEDS: PENTOXIFYLLINE (SR) 400 MG TAB PO ×3 (09:37→21:48)
[2018-12-27] MEDS: LOSARTAN 25 MG TAB PO ×2 (09:37→21:00)
[2018-12-27] MEDS: ASPIRIN 81 MG TAB PO (09:37)
[2018-12-27] MEDS: ARIPIPRAZOLE 10 MG TAB PO (09:37)
[2018-12-27] MEDS: ITRACONAZOLE 100 MG CAP PO ×2 (09:38→21:48)
[2018-12-27] MEDS: ALPRAZOLAM 1 MG TAB PO ×3 (09:38→21:48)
[2018-12-27] MEDS: HEPARIN 5,000 UNIT/1 ML VIAL SC ×2 (09:45→21:56)
[2018-12-27] MEDS: LEVOFLOXACIN 750MG/D5W (PMX) 150 ML IVPB (15:32)
[2018-12-27 17:00] LABS: C-REACTIVE PROTEIN 3.9 mg/dl (0.0-0.9)
[2018-12-27 17:02] LABS: VANCOMYCIN,TROUGH 16.6 ug/ml (10.0-20.0)
[2018-12-27 17:46] LABS: ERYTHROCYTE SEDIMENTATION RATE 25 mm/Hr (0-20)
[2018-12-27 20:24] LABS: PROCALCITONIN 0.06 ng/mL (0.00-0.10)
[2018-12-27] MEDS: ATORVASTATIN 10 MG TAB PO (21:48)
[2018-12-28] MEDS: VANCOMYCIN HCL 1.75 GM in SOD CHLORIDE 0.9% 500 ML IVPB ×2 (05:44→17:25)
[2018-12-28 06:47] LABS: ADD MAN DIFF? NO
[2018-12-28 06:54] LABS: BASOPHIL # 0.1 10^3/ul (0.0-0.1); BASOPHILS % 0.7 % (0.0-2.0); EOSINOPHILS # 0.1 10^3/ul (0.0-0.5); EOSINOPHILS % 0.8 % (0.0-7.0); HEMATOCRIT 38.5 % (42.0-52.0); HEMOGLOBIN 11.4 g/dl (14.0-18.0); LYMPHOCYTES # 2.4 10^3/ul (0.8-2.9); LYMPHOCYTES % 23.9 % (15.0-51.0); MEAN CORPUSCULAR HEMOGLOBIN 24.7 pg (29.0-33.0); MEAN CORPUSCULAR HGB CONC 29.6 g/dl (32.0-37.0); MEAN CORPUSCULAR VOLUME 83.3 fl (82.0-101.0); MEAN PLATELET VOLUME 9.7 fl (7.4-10.4); MONOCYTE # 0.6 10^3/ul (0.3-0.9); MONOCYTES % 5.7 % (0.0-11.0); NEUTROPHIL # 6.8 10^3/ul (1.6-7.5); NEUTROPHILS % 68.1 % (39.0-77.0); PLATELET COUNT 240 10^3/UL (140-415); RED BLOOD COUNT 4.62 10^6/ul (4.70-6.10); RED CELL DISTRIBUTION WIDTH 16.9 % (11.5-14.5)
[2018-12-28 07:14] LABS: ANION GAP 8 (5-13); BLOOD UREA NITROGEN 24 mg/dl (7-20); CALCIUM 8.6 mg/dl (8.4-10.2); CARBON DIOXIDE 27 mmol/L (21-31); CHLORIDE 106 mmol/L (97-110); Estimated GFR > 60 mL/min (>60); GLUCOSE 111 mg/dl (70-220); MAGNESIUM 1.8 mg/dl (1.7-2.5); PHOSPHORUS 4.6 mg/dl (2.5-4.9); POTASSIUM 4.7 mmol/L (3.5-5.1); SODIUM 141 mmol/L (135-144)
[2018-12-28] MEDS ORDERED: POLYMYXIN/BACITRACIN 1L IRRIG (10:11)
[2018-12-28] MEDS ORDERED: SEVOFLURANE 15 MIN (10:30)
[2018-12-28] MEDS ORDERED: FENTAnyl 50 MCG/ML VIAL (10:41)
[2018-12-28] MEDS ORDERED: LIDOCAINE 2% (SDV) 5 ML INJ (10:41)
[2018-12-28] MEDS ORDERED: PROPOFOL 20 ML (10:41)
[2018-12-28] MEDS ORDERED: ONDANSETRON 4 MG INJ (10:44)
[2018-12-28] MEDS ORDERED: GLYCOPYRROLATE 0.4 MG INJ (10:51)
[2018-12-28] MEDS ORDERED: FAMOTIDINE 20 MG INJ (10:56)
[2018-12-28] MEDS ORDERED: DEXAMETHASONE 4 MG/ML 5 ML INJ (10:56)
[2018-12-28] MEDS ORDERED: EPHEDrine 25 MG/5 ML SYG (11:11)
[2018-12-28] MEDS ORDERED: OXYCODONE/ACETAMINOPHEN (5/325) TAB PO ×2 (12:00)
[2018-12-28] MEDS ORDERED: MIDAZOLAM 1 MG/ML 2 ML INJ IV (12:00)
[2018-12-28] MEDS ORDERED: HYDROmorphONE 1 MG/5 ML IV SYRINGE IV (12:00)
[2018-12-28] MEDS ORDERED: LORAZEPAM 2 MG INJ IV (12:00)
[2018-12-28] MEDS ORDERED: LABETALOL HCL 20MG INJ IV (12:00)
[2018-12-28] MEDS ORDERED: FENTAnyl 50 MCG/ML VIAL IV (12:00)
[2018-12-28] MEDS ORDERED: KETOROLAC 30 MG INJ IV (12:00)
[2018-12-28] MEDS ORDERED: hydrALAzine 20 MG INJ IV (12:00)
[2018-12-28] MEDS ORDERED: MEPERIDINE 25 MG INJ IV (12:00)
[2018-12-28] MEDS: FENTAnyl 50 MCG/ML VIAL IV ×2 (12:16→12:26)
[2018-12-28] MEDS: ONDANSETRON 4 MG INJ IV (12:17)
[2018-12-28] MEDS: BACITRACIN 50000 UNITS INJ ×2 (12:30)
[2018-12-28] MEDS: POLYMYXIN B 500000 UNIT INJ ×2 (12:31)
[2018-12-28] MEDS: HYDROmorphONE 1 MG/5 ML IV SYRINGE IV ×2 (12:37→12:43)
[2018-12-28] MEDS: LACTATED RINGER'S 1,000 ML IV (12:38)
[2018-12-28] MEDS: PENTOXIFYLLINE (SR) 400 MG TAB PO ×3 (13:00→20:11)
[2018-12-28] MEDS: ITRACONAZOLE 100 MG CAP PO ×2 (13:14→20:11)
[2018-12-28] MEDS: ASPIRIN 81 MG TAB PO (13:14)
[2018-12-28] MEDS: ARIPIPRAZOLE 10 MG TAB PO (13:15)
[2018-12-28] MEDS: LOSARTAN 25 MG TAB PO ×2 (13:15→21:00)
[2018-12-28] MEDS: FERROUS SULFATE (EC) 325 MG TAB PO ×2 (13:15→21:00)
[2018-12-28] MEDS: ALPRAZOLAM 1 MG TAB PO ×2 (13:22→20:11)
[2018-12-28] MEDS: HEPARIN 5,000 UNIT/1 ML VIAL SC ×2 (13:56→20:21)
[2018-12-28] MEDS: LEVOFLOXACIN 750MG/D5W (PMX) 150 ML IVPB (15:26)
[2018-12-28] MEDS: ATORVASTATIN 10 MG TAB PO (20:10)
[2018-12-28] MEDS: HYDROmorphONE 1 MG/ML SYG IV (20:11)
[2018-12-29] MEDS: HYDROmorphONE 1 MG/ML SYG IV (00:22)
[2018-12-29] MEDS: HYDROmorphONE 2 MG TAB PO ×3 (04:50→13:46)
[2018-12-29] MEDS: LACTATED RINGER'S 1,000 ML IV (05:10)
[2018-12-29] MEDS: VANCOMYCIN HCL 1.75 GM in SOD CHLORIDE 0.9% 500 ML IVPB ×2 (06:14→18:00)
[2018-12-29] MEDS: ARIPIPRAZOLE 10 MG TAB PO (08:58)
[2018-12-29] MEDS: traZODone 50 MG TAB PO (08:58)
[2018-12-29] MEDS: ITRACONAZOLE 100 MG CAP PO ×2 (08:58→21:42)
[2018-12-29] MEDS: PENTOXIFYLLINE (SR) 400 MG TAB PO ×3 (08:59→21:41)
[2018-12-29] MEDS: ALPRAZOLAM 1 MG TAB PO ×2 (08:59→12:22)
[2018-12-29] MEDS: FERROUS SULFATE (EC) 325 MG TAB PO ×2 (08:59→21:41)
[2018-12-29] MEDS: ASPIRIN 81 MG TAB PO (08:59)
[2018-12-29] MEDS: LOSARTAN 25 MG TAB PO ×2 (08:59→21:41)
[2018-12-29] MEDS: HEPARIN 5,000 UNIT/1 ML VIAL SC ×2 (09:08→21:56)
[2018-12-29 10:53] LABS: ADD MAN DIFF? NO
[2018-12-29 10:55] LABS: WHITE BLOOD COUNT 12.1 10^3/ul (4.8-10.8)
[2018-12-29 10:55] LABS: BASOPHILS % 0.2 % (0.0-2.0); HEMATOCRIT 38.9 % (42.0-52.0); HEMOGLOBIN 11.9 g/dl (14.0-18.0); LYMPHOCYTES # 1.3 10^3/ul (0.8-2.9); LYMPHOCYTES % 10.6 % (15.0-51.0); MEAN CORPUSCULAR HEMOGLOBIN 24.7 pg (29.0-33.0); MEAN CORPUSCULAR HGB CONC 30.6 g/dl (32.0-37.0); MEAN CORPUSCULAR VOLUME 80.9 fl (82.0-101.0); MEAN PLATELET VOLUME 9.4 fl (7.4-10.4); MONOCYTE # 0.6 10^3/ul (0.3-0.9); MONOCYTES % 5.3 % (0.0-11.0); NEUTROPHILS % 82.8 % (39.0-77.0); PLATELET COUNT 315 10^3/UL (140-415); RED BLOOD COUNT 4.81 10^6/ul (4.70-6.10); RED CELL DISTRIBUTION WIDTH 16.1 % (11.5-14.5)
[2018-12-29 11:11] LABS: ANION GAP 8 (5-13); BLOOD UREA NITROGEN 21 mg/dl (7-20); CARBON DIOXIDE 30 mmol/L (21-31); CHLORIDE 102 mmol/L (97-110); Estimated GFR > 60 mL/min (>60); GLUCOSE 129 mg/dl (70-220); POTASSIUM 4.2 mmol/L (3.5-5.1); SODIUM 140 mmol/L (135-144)
[2018-12-29] MEDS: HYDROCODONE/APAP (5/325) TAB PO (12:23)
[2018-12-29] MEDS: LEVOFLOXACIN 750MG/D5W (PMX) 150 ML IVPB (15:13)
[2018-12-29 18:26] LABS: VANCOMYCIN,TROUGH 17.1 ug/ml (10.0-20.0)
[2018-12-29] MEDS: ATORVASTATIN 10 MG TAB PO (21:42)
[2018-12-29] MEDS: morphine 4 MG/ML VIAL IV (22:24)
[2018-12-29] MEDS: [UNRECOGNIZED DRUG - OTHER] XX (22:27)
[2018-12-29] MEDS: VANCOMYCIN HCL 1.25 GM in SOD CHLORIDE 0.9% 250 ML IVPB (22:29)
[2018-12-30] MEDS: METHADONE (1 MG/ML 5 ML PO UD SYG) PO (00:53)
[2018-12-30] MEDS: morphine 4 MG/ML VIAL IV ×2 (02:30→06:42)
[2018-12-30] MEDS: [UNRECOGNIZED DRUG - OTHER] XX (03:23)
== END 2018-12-30 08:00 | disposition left against medical advice (07) | DRG 571 ==
LOC: TEL 12-28 00:15 → E/R 16:29 → TEL 20:49
PROC: 0JBP0ZZ Excision of Left Lower Leg Subcutaneous Tissue and Fascia, Open Approach (ICD-10-PCS; principal; 2018-12-28 10:30)
PROC: 0JBL0ZZ Excision of Right Upper Leg Subcutaneous Tissue and Fascia, Open Approach (ICD-10-PCS; 2018-12-28 10:30)
PROC: 0JBN0ZZ Excision of Right Lower Leg Subcutaneous Tissue and Fascia, Open Approach (ICD-10-PCS; 2018-12-28 10:30)
DX: L03.116 Cellulitis of left lower limb (principal); L97.919 Non-pressure chronic ulcer of unspecified part of right lower leg with unspecified severity; N17.9 Acute kidney failure, unspecified; L97.929 Non-pressure chronic ulcer of unspecified part of left lower leg with unspecified severity; L03.115 Cellulitis of right lower limb; I87.8 Other specified disorders of veins; R06.2 Wheezing; T36.0X5A Adverse effect of penicillins, initial encounter; Y92.239 Unspecified place in hospital as the place of occurrence of the external cause; D50.9 Iron deficiency anemia, unspecified; Z86.718 Personal history of other venous thrombosis and embolism; F41.8 Other specified anxiety disorders; B35.1 Tinea unguium; B35.3 Tinea pedis; E66.01 Morbid (severe) obesity due to excess calories; Z68.39 Body mass index [BMI] 39.0-39.9, adult; B96.5 Pseudomonas (aeruginosa) (mallei) (pseudomallei) as the cause of diseases classified elsewhere; B95.62 Methicillin resistant Staphylococcus aureus infection as the cause of diseases classified elsewhere; B95.4 Other streptococcus as the cause of diseases classified elsewhere
CPT/HCPCS: 36415; 71045; 80048; 80053; 80061; 80202; 83036; 83605; 83735; 84100; 84145; 84484; 85025; 85610; 85651; 85730; 86140; 87040-91; 87070; 87075; 87081; 87102; 88304; 93005; 94664; 99285-25

== ENCOUNTER 2018-12-31 04:47 | Inpatient (IN) | payer OTHER ==
[2018-12-31] MEDS ORDERED: ACETAMINOPHEN 325 MG TAB PO (07:30)
[2018-12-31] MEDS ORDERED: ONDANSETRON 4 MG INJ IV (07:30)
[2018-12-31 08:34] LABS: ADD MAN DIFF? NO
[2018-12-31 08:38] LABS: WHITE BLOOD COUNT 11.8 10^3/ul (4.8-10.8)
[2018-12-31 08:38] LABS: BASOPHIL # 0.1 10^3/ul (0.0-0.1); BASOPHILS % 0.6 % (0.0-2.0); EOSINOPHILS # 0.1 10^3/ul (0.0-0.5); EOSINOPHILS % 0.9 % (0.0-7.0); HEMATOCRIT 39.6 % (42.0-52.0); HEMOGLOBIN 11.8 g/dl (14.0-18.0); LYMPHOCYTES # 2.1 10^3/ul (0.8-2.9); MEAN CORPUSCULAR HEMOGLOBIN 24.7 pg (29.0-33.0); MEAN CORPUSCULAR HGB CONC 29.8 g/dl (32.0-37.0); MEAN CORPUSCULAR VOLUME 82.8 fl (82.0-101.0); MEAN PLATELET VOLUME 9.3 fl (7.4-10.4); MONOCYTE # 0.6 10^3/ul (0.3-0.9); MONOCYTES % 5.2 % (0.0-11.0); NEUTROPHIL # 8.7 10^3/ul (1.6-7.5); NEUTROPHILS % 74.1 % (39.0-77.0); PLATELET COUNT 303 10^3/UL (140-415); RED BLOOD COUNT 4.78 10^6/ul (4.70-6.10); RED CELL DISTRIBUTION WIDTH 16.9 % (11.5-14.5)
[2018-12-31 08:51] LABS: ALANINE AMINOTRANSFERASE 15 IU/L (13-69); ALBUMIN 3.6 g/dl (3.3-4.9); ALKALINE PHOSPHATASE 144 IU/L (42-121); ANION GAP 7 (5-13); ASPARTATE AMINO TRANSFERASE 18 IU/L (15-46); BILIRUBIN,INDIRECT 0.3 mg/dl (0-1.1); BILIRUBIN,TOTAL 0.3 mg/dl (0.2-1.3); BLOOD UREA NITROGEN 40 mg/dl (7-20); CARBON DIOXIDE 29 mmol/L (21-31); CHLORIDE 107 mmol/L (97-110); CREATININE 1.87 mg/dl (0.61-1.24); Estimated GFR 37 mL/min (>60); GLUCOSE 116 mg/dl (70-220); POTASSIUM 4.6 mmol/L (3.5-5.1); SODIUM 143 mmol/L (135-144); TOTAL PROTEIN 8.1 g/dl (6.1-8.1)
[2018-12-31] MEDS ORDERED: morphine 2 MG INJ IV (11:30)
[2018-12-31] MEDS ORDERED: oxyCODONE 5 MG TAB PO (11:30)
[2018-12-31] MEDS ORDERED: VANCOMYCIN IV PER PHARMACY XX (11:30)
[2018-12-31] MEDS: FOLIC ACID 1 MG TAB PO (11:30)
[2018-12-31] MEDS: FERROUS SULFATE (EC) 325 MG TAB PO ×2 (11:30→21:35)
[2018-12-31] MEDS: DOCUSATE SODIUM 100 MG CAP PO ×2 (12:31→21:35)
[2018-12-31] MEDS: LACTOBACILLUS RHAMNOSUS CAP PO ×2 (12:32→21:35)
[2018-12-31] MEDS: LOSARTAN 25 MG TAB PO ×2 (12:32→21:36)
[2018-12-31] MEDS: DOXYCYCLINE 100 MG TAB PO ×2 (12:34→21:36)
[2018-12-31] MEDS: LEVOFLOXACIN 500 MG TAB PO (12:34)
[2018-12-31] MEDS: SOD CHLORIDE 0.9% 1,000 ML IV ×3 (13:44→22:39)
[2018-12-31] MEDS: oxyCODONE (CR) 10 MG TAB [oxyCONTIN] PO ×2 (14:45→21:37)
[2018-12-31] MEDS ORDERED: DAKINS 0.0125%(1/40) 473 ML SOLUTION TP (19:30)
[2018-12-31] MEDS: ATORVASTATIN 20 MG TAB PO (21:35)
[2018-12-31] MEDS: HEPARIN 5,000 UNIT/1 ML VIAL SC (21:37)
[2019-01-01] MEDS: LEVOFLOXACIN 500 MG TAB PO (05:36)
[2019-01-01] MEDS: oxyCODONE (CR) 10 MG TAB [oxyCONTIN] PO ×2 (05:37→12:48)
[2019-01-01 06:43] LABS: ADD MAN DIFF? NO
[2019-01-01] MEDS: SOD CHLORIDE 0.9% 1,000 ML IV ×3 (06:57→17:19)
[2019-01-01 07:12] LABS: ALANINE AMINOTRANSFERASE 8 IU/L (13-69); ALBUMIN 3.3 g/dl (3.3-4.9); ALKALINE PHOSPHATASE 120 IU/L (42-121); ANION GAP 5 (5-13); ASPARTATE AMINO TRANSFERASE 16 IU/L (15-46); BILIRUBIN,INDIRECT 0.5 mg/dl (0-1.1); BILIRUBIN,TOTAL 0.5 mg/dl (0.2-1.3); BLOOD UREA NITROGEN 31 mg/dl (7-20); CALCIUM 8.3 mg/dl (8.4-10.2); CARBON DIOXIDE 26 mmol/L (21-31); CHLORIDE 109 mmol/L (97-110); Estimated GFR > 60 mL/min (>60); GLUCOSE 100 mg/dl (70-220); MAGNESIUM 1.9 mg/dl (1.7-2.5); PHOSPHORUS 3.6 mg/dl (2.5-4.9); POTASSIUM 4.3 mmol/L (3.5-5.1); SODIUM 140 mmol/L (135-144); TOTAL PROTEIN 7.1 g/dl (6.1-8.1)
[2019-01-01] MEDS: FOLIC ACID 1 MG TAB PO (09:07)
[2019-01-01] MEDS: DOXYCYCLINE 100 MG TAB PO (09:07)
[2019-01-01] MEDS: FERROUS SULFATE (EC) 325 MG TAB PO (09:07)
[2019-01-01] MEDS: DOCUSATE SODIUM 100 MG CAP PO (09:07)
[2019-01-01] MEDS: LACTOBACILLUS RHAMNOSUS CAP PO (09:07)
[2019-01-01] MEDS: ARIPIPRAZOLE 10 MG TAB PO (09:09)
[2019-01-01] MEDS: HEPARIN 5,000 UNIT/1 ML VIAL SC (09:09)
[2019-01-01 09:32] LABS: BASOPHIL # 0.1 10^3/ul (0.0-0.1); BASOPHILS % 0.7 % (0.0-2.0); EOSINOPHILS # 0.2 10^3/ul (0.0-0.5); EOSINOPHILS % 1.8 % (0.0-7.0); HEMATOCRIT 38.8 % (42.0-52.0); HEMOGLOBIN 11.6 g/dl (14.0-18.0); LYMPHOCYTES % 23.8 % (15.0-51.0); MEAN CORPUSCULAR HEMOGLOBIN 24.7 pg (29.0-33.0); MEAN CORPUSCULAR HGB CONC 29.9 g/dl (32.0-37.0); MEAN CORPUSCULAR VOLUME 82.7 fl (82.0-101.0); MEAN PLATELET VOLUME 9.3 fl (7.4-10.4); MONOCYTE # 0.4 10^3/ul (0.3-0.9); MONOCYTES % 4.3 % (0.0-11.0); NEUTROPHIL # 5.6 10^3/ul (1.6-7.5); NEUTROPHILS % 68.3 % (39.0-77.0); PLATELET COUNT 267 10^3/UL (140-415); RED BLOOD COUNT 4.69 10^6/ul (4.70-6.10); RED CELL DISTRIBUTION WIDTH 17.3 % (11.5-14.5)
[2019-01-01 09:32] LABS: WHITE BLOOD COUNT 8.2 10^3/ul (4.8-10.8)
[2019-01-01] MEDS: traMADol 50 MG TAB PO (11:41)
[2019-01-01] MEDS: HYDROCODONE/APAP (5/325) TAB PO (17:18)
[2019-01-01] MEDS: HYDROmorphONE 2 MG/ML SYG IV ×2 (17:19→18:39)
== END 2019-01-01 18:05 | disposition left against medical advice (07) | DRG 603 ==
LOC: E/R 04:47 → TEL 07:13 → 5EC 15:05
DX: L03.116 Cellulitis of left lower limb (principal); N17.9 Acute kidney failure, unspecified; L97.819 Non-pressure chronic ulcer of other part of right lower leg with unspecified severity; L97.829 Non-pressure chronic ulcer of other part of left lower leg with unspecified severity; F33.2 Major depressive disorder, recurrent severe without psychotic features; L03.115 Cellulitis of right lower limb; I10 Essential (primary) hypertension; Z86.718 Personal history of other venous thrombosis and embolism; I12.9 Hypertensive chronic kidney disease with stage 1 through stage 4 chronic kidney disease, or unspecified chronic kidney disease; N18.2 Chronic kidney disease, stage 2 (mild); D50.9 Iron deficiency anemia, unspecified; Z76.5 Malingerer [conscious simulation]; B96.5 Pseudomonas (aeruginosa) (mallei) (pseudomallei) as the cause of diseases classified elsewhere; B95.62 Methicillin resistant Staphylococcus aureus infection as the cause of diseases classified elsewhere; B95.4 Other streptococcus as the cause of diseases classified elsewhere; E66.9 Obesity, unspecified; Z68.38 Body mass index [BMI] 38.0-38.9, adult; I83.018 Varicose veins of right lower extremity with ulcer other part of lower leg; I83.028 Varicose veins of left lower extremity with ulcer other part of lower leg; B35.1 Tinea unguium
CPT/HCPCS: 36415; 80048; 80053; 80076; 83735; 84100; 85025; 99285-25